=== PATIENT | male | born 1960 | race Caucasian/White ===

== ENCOUNTER 2023-02-01 09:30 | Outpatient (REF) | payer MEDICARE, MEDICAID, SELFPAY ==
[2023-02-01 14:31] LABS: MANUAL DIFF FLAG NO
[2023-02-01 14:37] LABS: Basophils Absolute Auto 0.1 X10*3/uL (0.0-0.2); Basophils Percent Auto 0.6 % (0-2); Eosinophils Absolute Auto 0.2 X10*3/uL (0.0-0.4); Eosinophils Percent Auto 1.6 % (0-4); Hematocrit 39.5 % (42.0-52.0); Hemoglobin 11.8 g/dl (14.0-18.0); Imm Gran Abs Auto 0.05 X10*3/uL (0.00-0.03); Imm Gran Pct Auto 0.5 % (0.0-0.4); Lymphocytes Absolute Auto 1.1 X10*3/uL (1.2-4.9); Lymphocytes Percent Auto 12.1 % (20-40); Mean Corpuscular HGB Conc 29.9 g/dl (31.0-36.0); Mean Corpuscular Hemoglobin 24.9 pg (27.0-33.0); Mean Corpuscular Volume 83.3 fL (80.0-98.0); Mean Platelet Volume 9.3 fL (9.4-12.4); Monocytes Absolute Auto 0.7 X10*3/uL (0.1-1.2); Monocytes Percent Auto 7.5 % (2-11); Neutrophils Absolute Auto 7.3 x10*3/uL (2.0-8.3); Neutrophils Percent Auto 77.7 % (45-73); Platelet Count 402 X10*3/uL (160-400); Red Blood Count 4.74 X10*6/uL (4.60-5.80); Red Cell Distribution Width 19.4 % (11.0-16.0); White Blood Count 9.3 X10*3/uL (4.8-10.8)
[2023-02-01 14:52] LABS: Estimated Average Glucose 100 mg/dL; Hemoglobin A1c % 5.1 %
[2023-02-01 15:33] LABS: Alanine Aminotransferase 22 U/L (0-40); Alkaline Phosphatase 138 U/L (39-117); Anion Gap 18 (12-20); Aspartate Amino Transferase 27 U/L (5-37); Bilirubin Total 0.3 mg/dL (0.0-1.0); Blood Urea Nitrogen 13 mg/dL (9-16); Calcium 9.8 mg/dL (8.4-10.2); Carbon Dioxide 27 mmol/L (22-29); Chloride 104 mmol/L (96-108); Cholesterol 239 mg/dL; Estimated Glomerular Filt Rate > 60; Glucose Fasting 62 mg/dL (60-99); HDL Cholesterol 88 mg/dL; LDL Cholesterol Calculated 135 mg/dl; Sodium 145 mmol/L (135-145); Total Protein 7.6 g/dL (6.5-8.0); Triglycerides 84 mg/dL
[2023-02-01 15:42] LABS: Prostate Specific Antigen 2.69 ng/mL (<0.05-4.0); TSH reflex Free T4 0.75 uIU/mL (0.32-4.0)
[2023-02-03 15:47] LABS: HCV Log PCR <1.18 NOT DETECTED Log IU/mL (NOT DETECTED); HepC Viral Load <15 NOT DETECTED IU/mL (NOT DETECTED)
[2023-02-03 18:33] LABS: HIV RNA PCR Qn Copies NOT DETECTED copies/mL (NOT DETECTED); HIV RNA PCR Qn Log Copies NOT DETECTED (NOT DETECTED)
== END 2023-02-01 09:31 | disposition home or self-care (01) ==
LOC: HO.CHCLDS 09:30
PROVIDERS: Visit Provider Internal Medicine
DX: I10 Essential (primary) hypertension (principal); Z85.46 Personal history of malignant neoplasm of prostate; Z21 Asymptomatic human immunodeficiency virus [HIV] infection status; Z12.5 Encounter for screening for malignant neoplasm of prostate
CPT/HCPCS: 36415; 80053; 80061; 83036; 84153; 84443; 85025; 87522; 87536

== ENCOUNTER 2023-04-29 11:18 | Outpatient (AMB) | payer MEDICARE, MEDICAID, SELFPAY ==
--- NOTE | 2023-04-29 11:20 | MHC.OFFVIS ---
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 He has a past medical history of hypertension and nicotine dependence. He presents to the office today as a new patient for right-sided testicular pain. In discussion with the patient today reports noting ongoing right-sided testicular pain for over 6 months. She reports a previous surgical history of a hydrocelectomy on the right side. He discusses following up with his PCP regarding right-sided testicular pain at which time a scrotal ultrasound was ordered. These results were reviewed with the patient today. Normal ultrasound of the testes. Continuous oscillating tiny echogenic foci within the epididymis which is thought to represent clusters of trapped spermatozoa. This finding is also seen in scrotal filariasis. Recommended clinical correlation. In assessment of the patient today right-sided epididymal tail tednerness noted otherwise no lesions, lumps, masses, and or drainage noted. Discussed potential diagnostic procedures such as testicular nerve block. If this is successful could recommend testicular denervation procedure with Dr. Martinez as discussed. Testicular nerve block performed in office as noted below. In office urinalysis results reviewed with the patient today. He otherwise denies any bothersome urinary issues or concerns. He reports to be happy with current voiding parameters. He discusses at length losing his daughter when she was 18 years old to cancer. He discusses his strained relationship with his son who has a substance abuse disorder. He reports to soon be moving to [facility] were he has been building his own home. When asked he denies urinary urgency, urinary frequency, incontinence, nocturia, hematuria, dysuria, foul smelling urine, changes to urinary stream, flank pain, fever, and or chills. He otherwise offers no issues or concerns at this time PFSH Medical History Pain in right testicle Chronic pain of right ankle Hypertension Review of Systems Const Reports no additional complaints Eyes Reports no additional complaints ENT Reports no additional complaints Card Reports as per HPI Resp Reports no additional complaints GI Reports no additional complaints Reports as per HPI Musc Reports no additional complaints Neuro Reports no additional complaints Psych Reports no additional complaints Endo Reports no additional complaints Ralph/Lymph Reports no additional complaints Aller/Immun Reports no additional complaints Physical Exam Const General: cooperative, comfortable, no acute distress, well developed, alert and awake Orientation/consciousness: patient oriented x3 HEENT Head: Yes normal to inspection, Yes normocephalic and Yes atraumatic Ears: hearing grossly normal bilaterally Eyes General: appearance normal, both eyes and all related structures Neck Neck: Yes normal visual inspection and Yes trachea midline Chest Chest palpation & inspection: normal inspection of the chest Resp Effort & Inspection: normal respiratory effort and able to speak in complete sentences Cardio Rate: regular rate GI Inspection: Yes normal to inspection General: Yes no CVA tenderness Penis: normal penis and circumcised Meatus: meatus normal Testes: epididymal tenderness (right sided epididymal head tenderness ) on the right Back/Spine/Pelvis Back: no CVA tenderness Skin General skin exam: no rashes or lesions noted Neuro General: patient oriented x3 Extrem General: Yes normal to inspection Psych Appearance: grossly normal and well kempt Mental Status: mental status grossly normal Speech and movement: Normal speech and movement present and Clear speech present Affect: normal affect Attitude: cooperative Thought process: Normal thought process present Thought content: Normal thought content present Insight: Fair insight present (Psych) Judgement: Fair judgement present (Psych) Office Procedures Therapeutic Injection Therapeutic Injection Details: General Femoral Cord - Block Office procedure - Genitofemoral Cord Injection The right inguinal ring was palpated with the left hand. The inguinal cord was palpated 1cm lateral to the lateral tubercle on the symphysis pubis. Alcohol prep was applied. A 22 gauge 3.5 in Chiba needle was advanced and under tactile guidance the tip was placed through the inguinal cord.? Negative aspiration was performed.? A fan-like distribution for injection of a total of 10 cc was made.? The injection consisted of 5 cc of 0.5% bupivacaine, 5 cc of 1% lidocaine The injection was well tolerated with only transient pain. CPT 46612 ICD N50.819 [id number]-[place] Tunnel Injection, therapeutic All charges added?: Procedure code (CPT) selection complete Assessment & Plan Assessment & Plan (1) Testicular pain, unspecified: Code(s): N50.819 - Testicular pain, unspecified Plan In office urinalysis results reviewed with the patient today; as noted above. Patient denies any bothersome urinary issues or concerns at this time. Patient reports be happy with current voiding parameters. In office nerve block provided; as noted above. Discussed at length potential causes for right-sided testicular/scrotal pain patient has been experiencing. Discussed if this is successful could recommend testicular denervation procedure with Dr. Martinez. Patient will call office next week for an update to outcome of office procedure in relation to potential pain relief; or sooner with any issues, concerns, and or questions. Orders: Orders AMB Urinalysis Automated 04/29/23 Z13.9 - Encounter for screening, unspecified Patient Instructions: The patient had an opportunity to ask questions regarding the treatment plan. All questions were answered. Physical exam, labs, and imaging were discussed and reviewed in detail. As well as risks, benefits, and discussion of treatment choices. No major barriers to understanding were identified. The patient expressed understanding and agreement with the above treatment plan. The patient was made aware they should contact our office by phone for worsening of their current condition, the appearance of new symptoms, or with any questions or concerns. Compliance is encouraged with any medications and follow up testing that is ordered. It is a privilege to be allowed the opportunity to participate in? your urological care.? Again, if you have any questions or concerns If you have any questions or concerns please do not hesitate to contact me. The office is [phone]. This note is constructed using voice recognition software. While every effort has been made to ensure accuracy ironworker apprentice errors may have been included. Yours sincerely, FERNANDEZ Boothe Coding Level of Care Code New Pt Level 4 (36129) Diagnoses Testicular pain, unspecified N50.819 CPT Codes Therapeutic Injection - Ther Injection 3: [id number]-[id number] Tunnel Injection, therapeutic ([id number])
== END 2023-04-29 12:18 | disposition home or self-care (01) ==
PROVIDERS: PCP Internal Medicine; Visit Provider Nurse Practitioner Family
DX: N50.819 Testicular pain, unspecified (principal); R10.2 Pelvic and perineal pain
CPT/HCPCS: 64425; 99204

== ENCOUNTER → 2023-04-29 11:18 | Outpatient (BNVA) | payer MEDICARE, MEDICAID, SELFPAY | PROVIDERS: PCP Internal Medicine; Visit Provider Nurse Practitioner Family | DX: R10.2 Pelvic and perineal pain (principal); N50.819 Testicular pain, unspecified | CPT/HCPCS: 64425; 99202 ==

== ENCOUNTER 2024-05-01 09:15 | Outpatient (REF) | payer MEDICARE, SELFPAY ==
[2024-05-01 14:28] LABS: MANUAL DIFF FLAG NO
[2024-05-01 14:39] LABS: Basophils Absolute Auto 0.1 X10*3/uL (0.0-0.2); Basophils Percent Auto 0.7 % (0-2); Eosinophils Absolute Auto 0.2 X10*3/uL (0.0-0.4); Eosinophils Percent Auto 1.5 % (0-4); Hematocrit 40.7 % (42.0-52.0); Hemoglobin 12.9 g/dl (14.0-18.0); Imm Gran Abs Auto 0.07 X10*3/uL (0.00-0.03); Imm Gran Pct Auto 0.6 % (0.0-0.4); Lymphocytes Absolute Auto 1.6 X10*3/uL (1.2-4.9); Lymphocytes Percent Auto 14.5 % (20-40); Mean Corpuscular HGB Conc 31.7 g/dl (31.0-36.0); Mean Corpuscular Hemoglobin 27.3 pg (27.0-33.0); Mean Platelet Volume 8.9 fL (9.4-12.4); Monocytes Absolute Auto 0.6 X10*3/uL (0.1-1.2); Monocytes Percent Auto 5.5 % (2-11); Neutrophils Absolute Auto 8.4 x10*3/uL (2.0-8.3); Neutrophils Percent Auto 77.2 % (45-73); Platelet Count 371 X10*3/uL (160-400); Red Blood Count 4.73 X10*6/uL (4.60-5.80); Red Cell Distribution Width 18.7 % (11.0-16.0); White Blood Count 10.9 X10*3/uL (4.8-10.8)
[2024-05-01 15:11] LABS: Alanine Aminotransferase 22 U/L (0-40); Albumin Level 4.3 g/dL (3.5-5.0); Alkaline Phosphatase 114 U/L (39-117); Anion Gap 18 (12-20); Aspartate Amino Transferase 33 U/L (5-37); Bilirubin Total 0.4 mg/dL (0.0-1.0); Blood Urea Nitrogen 18 mg/dL (9-16); Calcium 10.3 mg/dL (8.4-10.2); Carbon Dioxide 24 mmol/L (22-29); Chloride 105 mmol/L (96-108); Cholesterol 237 mg/dL (<200); Estimated Glomerular Filt Rate > 60; Glucose Random 101 mg/dL (60-115); HDL Cholesterol 144 mg/dL (>40); Iron 95 mcg/dL (45-160); LDL Cholesterol Calculated 82 mg/dL (<100); Percent Iron Saturation 22 % (15-50); Potassium 4.5 mmol/L (3.3-5.1); Sodium 142 mmol/L (135-145); TSH reflex Free T4 0.56 uIU/mL (0.32-4.0); Total Iron Binding Capacity 438 mcg/dL (228-428); Total Protein 7.6 g/dL (6.5-8.0); Triglycerides 55 mg/dL (<150); Unsaturated Iron Binding 343 ug/dL
[2024-05-01 15:29] LABS: Folate 3.8 ng/mL (> or = 4.0); Vitamin B12 303 pg/mL (200-900)
== END 2024-05-01 09:16 | disposition home or self-care (01) ==
LOC: HO.CHCLDS 09:15
PROVIDERS: Visit Provider Internal Medicine
DX: I10 Essential (primary) hypertension (principal)
CPT/HCPCS: 36415; 80053; 80061; 82607; 82746; 83540; 84443; 85025

== ENCOUNTER 2024-05-03 12:50 | Outpatient (AMB) | payer MEDICARE, SELFPAY ==
[2024-05-03 12:51] VITALS: BP 160/82; PULSE 95; BMI 24.0
--- NOTE | 2024-05-03 12:51 | A.OFFVIS_ITS ---
Vital Signs 05/03/24 12:51 Height 5 ft 6 in Weight 149 lb BMI 24.0 BP 160/82 H Blood Pressure Location Rt brachial Position Sitting Pulse 95 Intake Visit Reasons: external hemorrhoids Intake Note: This patient presents for external hemorrhoids. Pt c/o; external hemorrhoids. Plant Health Manager Required: No Accompanied by: Self / Same As Patient Allergies acetaminophen [From TYLENOL] Allergy (Unknown, Unverified 05/03/24 13:01) ITCHING ibuprofen [IBUPROFEN] Allergy (Unknown, Unverified 05/03/24 13:01) GI UPSET Medication List - Last Reconciled 05/03/24 by Andrew Cunningham MD aspirin 81 mg PO DAILY atorvastatin 20 mg PO DAILY diclofenac sodium 75 mg PO BID hydrochlorothiazide 25 mg PO DAILY losartan 50 mg PO DAILY triamcinolone acetonide 0.1% 1 appl topical BID-TID HPI HPI external hemorrhoids: Details: 63-year-old male here for hemorrhoid issues. He describes perianal itching periodically. He says that he knows he has had hemorrhoids describes this to be causing his itching. He would have hemorrhoidectomy in 2016 for 2 columns. He said he had been doing very well at that time but he did have residual hemorrhoids then which she felt did not cause him any problems He denies any bleeding. He denies any constipation. [facility] Medical History Hemorrhoids with complication Pain in right testicle Chronic pain of right ankle Hypertension Surgical History No pertinent past surgical history Family History Other Family history unknown Social History Unable to assess alcohol history related to: Unknown Patient Tobacco Use Status: Tobacco use Unknown Review of Systems Const Denies chills and Denies fever(s) Card Denies chest pain, Denies dyspnea and Denies dyspnea on exertion Resp Denies cough, Denies dyspnea and Denies dyspnea on exertion GI Denies hematochezia and Denies change in bowel habits Denies hematuria and Denies difficulty urinating Musc Denies back pain and Denies limited range of motion Neuro Denies focal weakness and Denies convulsions Psych Denies depression and Denies mood swings Physical Exam Vital Signs: Last Vital Signs Pulse 95 05/03/24 12:51 BP 160/82 H 05/03/24 12:51 BMI result Body Mass Index 24.0 Const General: comfortable and no acute distress Orientation/consciousness: patient oriented x3 Neck Neck: Yes no lymphadenopathy Resp Auscultation: clear to auscultation bilaterally Cardio Rhythm: regular rhythm GI Other: Rectal exam shows external hemorrhoids on both the left and right side, prominent but none bulky Palpation (GI): Soft to palpation, nontender and no guarding Neuro General: patient oriented x3 Office Procedures Anoscopy He was in chris-knife position. The anoscope was gently inserted. A full exami nation of the anal canal was done. He did have what appeared to be a prominent internal hemorrhoidal along with an internal column on the left side. There were no other lesions seen. There was no fissure ulceration. There was no bleeding. There was no induration on digital exam. [id number] Assessment & Plan Assessment & Plan (1) Hemorrhoids with complication: Code(s): K64.8 - Other hemorrhoids Category: Medical Plan: He has internal external hemorrhoids. Describes perianal itching as his main complaint. Denies any significant swelling or pain. I would start him on Calmoseptine for symptomatic relief of his perianal itching. I did explain to him the option of hemorrhoidectomy. He says he does not feel that his symptoms are not that severe and wants to hold off on any surgical intervention at this time He says he will follow up with me down the line if he wants to be re-evaluated. Medications: New menthol-zinc oxide 0.44-20.6 % (Calmoseptine) 1 appl topical QID PRN 113 grams 2RF perianal itching Coding Level of Care Code New Pt Level 3 (22773) Diagnoses Hemorrhoids with complication K64.8 CPT Codes Details - CPT: 30632-Prbxmbru ([id number])
== END 2024-05-03 13:20 | disposition home or self-care (01) ==
LOC: HO.HGS 12:50
PROVIDERS: PCP Internal Medicine; Visit Provider Surgery
DX: K64.8 Other hemorrhoids (principal)
CPT/HCPCS: 46600; 99203

== ENCOUNTER → 2024-05-03 12:50 | Outpatient (BNVA) | payer MEDICARE, SELFPAY | PROVIDERS: PCP Internal Medicine; Visit Provider Surgery | DX: K64.8 Other hemorrhoids (principal) | CPT/HCPCS: 46600; 99202 ==

== ENCOUNTER 2024-07-06 09:53 | Outpatient (AMB) | payer MEDICARE, SELFPAY ==
--- NOTE | 2024-07-06 07:47 | MHC.OFFVIS ---
Intake Visit Reasons: Current Smoker Allergies acetaminophen [From TYLENOL] Allergy (Unknown, Unverified 05/03/24 13:01) ITCHING ibuprofen [IBUPROFEN] Allergy (Unknown, Unverified 05/03/24 13:01) GI UPSET HPI HPI Current Smoker: Details: Initial visit for this 63yo smoker with a 30PYH. Patient started smoking at age 13 for 50 years at 1/2-3/4ppd. . Reports daily marijuana use. Denies second hand smoke exposure. Denies exposure to chemicals or substances like asbestos. . Denies known family history of lung cancer. Denies personal history of cancers. Denies chest CT in last year. . Denies recent travel outside the [place]. Denies recent respiratory illness or recent hospitalization for respiratory issues. Denies testing positive for COVID. Denies receiving COVID Vaccine. . Denies fever, chills, new/worsening cough, hemoptysis, hoarseness or dysphagia. Denies significant chest pain, significant dyspnea or unintentional weight loss. Patient Lung Cancer Screening Questionnaire reviewed with patient by provider. . Shared Decision Making Completed. Patient meets criteria. Discussed in detail with patient, the risk vs benefit of LDCT screening. Patient consents to proceed with scan. Discussed smoking cessation. [facility] Medical History (Updated 07/06/24 @ 09:57 by Claudette Monzon PA-C) Nicotine dependence, cigarettes, uncomplicated Hemorrhoids with complication Pain in right testicle Chronic pain of right ankle Hypertension Surgical History (Updated 06/14/24 @ 09:45 by Claudette Monzon PA-C) History of hydrocelectomy History of hemorrhoidectomy History of colonoscopy Family History Other Family history unknown Social History (Updated 07/06/24 @ 09:57 by Claudette Monzon PA-C) Unable to assess alcohol history related to: Unknown Patient Tobacco Use Status: Current everyday Tobacco user Years Smoked: (onset 13yo, 1/2-3/4ppd x 50yrs, 30pyh) Assessment & Plan Assessment & Plan (1) Nicotine dependence, cigarettes, uncomplicated: Comment: (onset 13yo, 1/2-3/4ppd x 50yrs, 30pyh) Code(s): F17.210 - Nicotine dependence, cigarettes, uncomplicated Category: Medical Plan: - SDM visit completed today in office. - Patient meets criteria for LDCT for lung cancer screening purposes and is asymptomatic. - Smoking cessation counseling offered. Patients can always call [phone]. - Will arrange for a LDCT scan of the chest for screening purposes at [facility]. - Risks, benefits, and alternatives were discussed in detail and the patient agrees to proceed. - Risks discussed include but are not limited to: radiation exposure, anxiety during testing and while awaiting results, false negatives, false positives and possibility of additional intervention such as further imaging or surgical procedures for benign disease. - Benefits are obviously detection of lung cancer at an early stage which can lead to improved outcomes. - Discussed the importance of screening program compliance with adherence to yearly LDCT scan as scheduled - or sooner interval scans for personalized screening regimen. - Discussed follow up plan. Our office will send a letter discussing results and if needed set up phone call and office visit based on CT findings. - Patient educated on results categorization and the management decisions for suspicious findings potentially found on the screening LDCT scan. Any patient with a Lung RADS score of 3 or 4 will be reviewed by a multidisciplinary team at [facility] to form a plan of action in regards to scan findings. - If further work up is warranted for a suspicious lung finding this will be followed by the Lung Cancer Screening program in conjunction with the Thoracic Surgery Department at [facility]. - A copy of the office note and LDCT will be sent to the patient's PCP - as well as documentation on any associated further plans of care. - Incidental findings on LDCT are the PCP's responsibility. These findings are indicated with an S finding on the LDCT Assessment. A note discussing the findings will be sent to the PCP who is then responsible for further management. - All questions answered.? Plan The USPTF recommends men age 65-75 who have ever smoked have a one-time Abdominal Ultrasound to screen for AAA. Advised patient and primary care to discuss if not done prior. Coding Level of Care Code Lung Cancer Screening G0296 Diagnoses Nicotine dependence, cigarettes, uncomplicated F17.210
== END 2024-07-06 10:15 | disposition home or self-care (01) ==
PROVIDERS: PCP Internal Medicine; Visit Provider Physician Assistant Medical
DX: F17.210 Nicotine dependence, cigarettes, uncomplicated (principal)
CPT/HCPCS: G0296

== ENCOUNTER 2024-07-06 10:05 | Outpatient (REF) | payer MEDICARE, SELFPAY ==
--- NOTE | ~2024-07-06 | CT_ITS ---
CLINICAL HISTORY: F17.210 - Nicotine dependence, cigarettes, uncomplicated CT lung cancer screening (LDCT) Comparison: None Technique: Axial CT images of the chest using low-dose technique. Referring provider counseled the patient on shared decision-making for LDCT screening. Additional counseling was provided on smoking cessation. Effective radiation dose total: DLP 41.6 mGycm, CTDIvol 1.2 mGy. Findings: Lung: Centrilobular emphysema. 7.3 x 9.9 mm pulmonary nodule of the right lower lobe series 4, image 47. 5.5 mm nodule of the right middle lobe on image 39. 3 mm semi-solid subpleural nodule of the left lower lobe image 47. There are additional small pulmonary nodules. Coronary artery calcifications: Moderate Limited upper abdomen: Unremarkable Other: None Impression: LungRADS 4A - Suspicious: Follow-up low dose Chest CT recommended in 3 months or consider PET/CT. ##L4A# Category 1: Normal; continue annual screening Category 2: Benign appearance or behavior, continue annual screening Category 3: Probably benign, [address] recommended Category 4A: Suspicious, [address] recommended; may consider PET/CT Category 4B: Suspicious, Additional diagnostics and/or tissue sampling recommended Category 4X: Suspicious, Additional diagnostics and/or tissue sampling recommended Category 0: Recalls (incomplete screen due to Incomplete coverage, Noise, Respiratory motion, Expiration, Obscured by acute abnormality) This document has been electronically signed by: Soo Yu MD on 07/09/2024 15:01:49
== END 2024-07-06 10:06 | disposition home or self-care (01) ==
LOC: HO.CT 10:05
PROVIDERS: PCP Internal Medicine; Visit Provider Physician Assistant Medical
DX: Z12.2 Encounter for screening for malignant neoplasm of respiratory organs (principal); F17.210 Nicotine dependence, cigarettes, uncomplicated
CPT/HCPCS: 71271; G0296

== ENCOUNTER → 2024-07-06 10:07 | Outpatient (BNV) | payer MEDICARE, SELFPAY | PROVIDERS: PCP Internal Medicine; Visit Provider Nuclear Medicine | DX: J43.2 Centrilobular emphysema (principal); R91.1 Solitary pulmonary nodule | CPT/HCPCS: 71271 ==